=== PATIENT | female | born 1995 | race Hispanic/Latino ===

== ENCOUNTER 2020-07-31 15:34 | Observation (INO) | payer BC, OTHER ==
[2020-07-31] MEDS ORDERED: LACTATED RINGERS 1000ML 1,000 ML IV ONE (16:30)
== END 2020-07-31 17:43 | disposition home or self-care (01) ==
LOC: EDH 15:34 → LDH 15:35
PROVIDERS: ADMIT Obstetrics & Gynecology; ATTEND Obstetrics & Gynecology
DX: O36.8130 Decreased fetal movements, third trimester, not applicable or unspecified (principal); Z3A.34 34 weeks gestation of pregnancy
CPT/HCPCS: 59025; 76819; 96360; 99283; G0378 ×2; J7120 ×2